=== PATIENT | female | born 2000 | race Hispanic/Latino ===

== ENCOUNTER 2023-09-19 10:06 | Day surgery (SDC) | payer BC ==
[2023-09-19] VITALS (11 sets, daily range): BP systolic 109–135; BP diastolic 52–78; PULSE 73–88; RESP 14–18
[~2023-09-19] VITALS: Ht 175.3 cm; Wt 122.5 kg
[~2023-09-19 10:06] MED LIST: BUPR150T3 PO; PHEN15CA61 PO
[2023-09-19] MEDS ORDERED: PROPOFOL 10 MG/ML 20ML VIAL IV ONE (12:21)
== END 2023-09-19 13:43 | disposition home or self-care (01) ==
LOC: ENDO 10:06 → DAH 10:06 → ENDO 13:43
PROVIDERS: ATTEND Internal Medicine Gastroenterology
DX: R93.2 Abnormal findings on diagnostic imaging of liver and biliary tract (principal); R94.5 Abnormal results of liver function studies; K85.90 Acute pancreatitis without necrosis or infection, unspecified; K76.89 Other specified diseases of liver; K29.00 Acute gastritis without bleeding; R74.8 Abnormal levels of other serum enzymes; K83.8 Other specified diseases of biliary tract; E66.9 Obesity, unspecified; Z79.01 Long term (current) use of anticoagulants; Z79.899 Other long term (current) drug therapy; Z90.49 Acquired absence of other specified parts of digestive tract; Z98.890 Other specified postprocedural states; Z68.41 Body mass index [BMI] 40.0-44.9, adult
CPT/HCPCS: 81025; 43259; J2704; A4620; A4215 ×2; A4223; A7002; A4222; A4221; A4663; A4216; J7030; A4606; J3490